=== PATIENT | female | born 2000 | race Two or more races ===

== ENCOUNTER 2024-07-10 00:21 | Emergency (ER) | payer MEDICAID ==
[~2024-07-10] VITALS: Ht 165.1 cm; Wt 72.8 kg
[2024-07-10 01:03] VITALS: BP 136/82; PULSE 104; RESP 16; TEMP 99.1; O2SAT 97
[2024-07-10] MEDS ORDERED: AUG875T PO (02:39)
[2024-07-10] MEDS ORDERED: METH4PAK PO (02:39)
--- NOTE | 2024-07-10 02:39 | ED.PDOC ---
Eye-HPI HPI Comments PT CAME TO THE ER WITH CC OF SORE THROAT AND YOUSIF X2 DAY, TONSILS APPEAR SWOLLEN AND RED. PT IS A&OX4 RR EVEN AND REGULAR NO DISTRESS NOTED AT THIS TIME. PT DENIES N/V/D CP SOB Chief Complaint: Sore Throat Time Seen by MD: 00:32 Reviewed Notes: Nurses Notes, Medications, Allergies Home Meds Active Scripts Methylprednisolone (Medrol Dosepak) 4 Mg Ian, 4 MG PO UD for 6 Days, #21 TAB UAD Prov:MARTHA ZELAYA [employer]ICIAN 07/10/24 Amoxicillin & Pot Clavulanate (AUGMENTIN TABLET) 875 Mg Tb, 875 MG PO BID for 10 Days, #20 TAB Prov:MARTHA ZELAYA [employer]IAN 07/10/24 Information Source: Patient Mode of Arrival: Ambulatory Past Medical History PAST MEDICAL HISTORY: Denies Surgical History: Denies all surgeries [employer] F[employer]ER History: No Pertinent [employer]ER History Family History Family History: Unknown Social History Smoker: Non-Smoker Alcohol: Denies ETOH Use Drugs: Denies Drug Use Constitutional: reports: fever; denies: chills, diaphoresis, fatigue, malaise, sweats, weakness, others EENTM: reports: throat pain, throat swelling; denies: blurred vision, double vision, ear bleeding, ear discharge, ear drainage, ear pain, ear ringing, eye pain, eye redness, hearing loss, mouth pain, mouth swelling, nasal discharge, nose bleeding, nose congestion, nose pain, photophobia, tearing, voice changes, others Respiratory: denies: cough, hemoptysis, orthopnea, SOB at rest, shortness of breath, SOB with excertion, stridor, wheezing, others Cardiovascular: denies: chest pain, dizzy spells, diaphoresis, Dyspnea on exertion, edema, irregular heart beat, left arm pain, lightheadedness, palpitations, PND, syncope, others Gastrointestinal: denies: abdomen distended, abdominal pain, blood streaked bowels, constipated, diarrhea, dysphagia, difficulty swallowing, hematemesis, melena, nausea, poor appetite, poor fluid intake, rectal bleeding, rectal pain, vomiting, others Genitourinary: denies: abnormal vagina bleeding, burning, dyspareunia, dysuria, flank pain, frequency, hematuria, incontinence, pain, , vagina discharge, urgency, others Neurological: reports: headache; denies: dizziness, fainting, left sided numbness, left sided weakness, numbness, paresthesia, pre-existing deficit, right sided numbness, right sided weakness, seizure, speech problems, tingling, tremors, weakness, others Musculoskeletal: denies: back pain, gout, joint pain, joint swelling, muscle pain, muscle stiffness, neck pain, others Integumetry: denies: bruises, change in color, change in hair/nails, dryness, laceration, lesions, lumps, rash, wounds, others Allergic/Immunocompromised: denies: Difficulty Healing, Frequent Infections, Hives, Itching, others Hematologic/Lymphatic: denies: anemia, blood clots, easy bleeding, easy bruising, swollen glands, others Endocrine: denies: excessive hunger, excessive sweating, excessive thirst, excessive urination, flushing, intolerance to cold, intolerance to heat, unexplained weight gain, unexplained weight loss, others Psychiatric: denies: anxiety, bipolar disorder, depression, hopeless, panic disorder, schizophrenia, sleepless, suicidal, others Physical Exam General Appearance: No Apparent Distress, Normal HEENT: Pharyngeal Erythema, TMs Normal, Tonsillar Exudate (TONSILS GRADE 4) Neck: Full Range of Motion, Non-Tender, Normal, Normal Inspection Respiratory: Lungs Clear, No Accessory Muscle Use, No Respiratory Distress, Normal Breath Sounds Cardiovascular: No Edema, No JVD, No Murmur, No Gallop, Normal Peripheral Pulses, Regular Rate/Rhythm Breast Exam: Deferred Gastrointestinal: No Organomegaly, Non Tender, No Pulsatile Mass, Normal Bowel Sounds, Soft Genitalia: Deferred Pelvic: Deferred Rectal: Deferred Extremities: Normal capillary refill, Normal inspection, Normal range of motion, Non-tender, No pedal edema Musculoskeletal : Apperance: Normal Neurologic: Alert, 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 Was a procedure done?: No EENT DIFF Eye: N/A Ear: N/A Nose: N/A Sore Throat: Mononeucleosis, Sanchez's Angina, Peritonsillar Abscess, Peritonsillar Cellulitis, Pharyngitis, Streptococcal, Viral Pharyngitis, URI X-Ray, Labs, Meds, VS Vital Signs Date Time Temp Pulse Resp B/P (MAP) Pulse Ox O2 Delivery O2 Flow Rate FiO2 07/10/24 01:03 Room Air 07/10/24 01:03 99.1 104 16 136/82 (100) 97 99.1 07/10/24 01:03 99.1 104 16 136/82 (100) 97 99.1 Current Medications Medications (Trade) Dose Ordered Sig/Wang Route Start Time Stop Time Status Last Admin Dexamethasone Sodium Phosphate (Decadron Injection) 10 mg ONCE ONCE IM 07/10/24 01:45 07/10/24 01:46 DC 07/10/24 02:58 Ceftriaxone Sodium (Rocephin) 1,000 mg ONCE ONCE IM 07/10/24 01:45 07/10/24 01:46 DC 07/10/24 02:58 Acetaminophen (Tylenol Tablet Or Capsule) 1,000 mg ONCE ONCE PO 07/10/24 03:00 07/10/24 03:01 DC 07/10/24 03:02 X-Ray, Labs, Meds, VS Comment PATIENT GIVEN ROCEPHIN 1 G IM AND DECADRON 10 MG IM AND TYLENOL 1 G. NOTES IMPROVEMENT SYMPTOMS REQUESTING DISCHARGE AT THIS TIME. SCRIPT TRIAL OF AUGMENTIN AND MEDROL DOSEPAK PATIENT'S PHARMACY ON FILE. ADVISED TO TAKE MEDICATIONS PRESCRIBED SIDE EFFECTS DISCUSSED. [id number] TYLENOL OR MOTRIN NEEDED FOR FEVER AND PAIN PER LABELED DOSING INSTRUCTIONS. ADVISED TO FOLLOW UP WITH HER PCP IN 2-3 DAYS NEEDED DISCUSSED ER RETURN PRECAUTIONS PATIENT INDICATES UNDERSTANDING AND AGREES WITH DISCHARGE PLAN OF CARE. Time of 1ST Reevaluation: 01:30 Reevaluation 1ST: Unchanged Time of 2ND Reevaluation: 03:07 Reevaluation 2ND: Improved Patient Education/Counseling: Diagnosis, Treatment, Prognosis, Need For Follow Up Family Education/Counseling: No Family Present Departure 1 Departure Time of Disposition: 02:38 Impression: Primary Impression: Acute tonsillitis Qualified Codes: J03.90 - Acute tonsillitis, unspecified Disposition: HOME / SELF CARE / HOMELESS Condition: Stable e-Prescriptions Methylprednisolone (Medrol Dosepak) 4 Mg Ian 4 MG PO UD for 6 Days, #21 TAB UAD Prov: MARTHA ZELAYA [employer] 07/10/24 Amoxicillin & Pot Clavulanate (AUGMENTIN TABLET) 875 Mg Tb 875 MG PO BID for 10 Days, #20 TAB Prov: MARTHA ZELAYA 07/10/24 Discharged With: Self Critical Care Note Critical Care Time?: No Stability Stability form required: MARTHA Dumont July 10, 2024 02:39
[2024-07-10] MEDS: DexAMETHasone SOD PHOS 10MG/1ML VIAL INJ IM ONE (02:58)
[2024-07-10] MEDS: cefTRIAXone SOD 1,000 MG VL IM ONE (02:58)
[2024-07-10] MEDS: ACETAMINOPHEN 500 MG TAB or CAP PO ONE (03:02)
== END 2024-07-10 03:23 | disposition home or self-care (01) ==
LOC: ER 00:21
DX: J03.90 Acute tonsillitis, unspecified (principal)
CPT/HCPCS: 96372; 99284; J0696; J1100

== ENCOUNTER 2024-09-23 14:42 | Emergency (ER) | payer MEDICAID ==
[~2024-09-23] VITALS: Ht 165.1 cm; Wt 65.0 kg
--- NOTE | 2024-09-23 15:12 | ED.PDOC ---
General HPI Comments THIS IS A 23 YEAR OLD FEMALE PRESENTING TO THE ED WITH CHIEF COMPLAINT OF PELVIC ACHING. PATIENT REPORTS THAT SHE HAS BEEN EXPERIENCING PELVIC PAIN WITH ASSOCIATED FATIGUE, VAGINAL DISCHARGE, VAGINAL ITCHINESS, AND CLOUDY URINE FOR THE PAST 3 DAYS. PATIENT RELAYS THAT HER LMP WAS ON 08/18/24. PATIENT DENIES ANY DYSURIA, HEMATURIA, FLANK PAIN, ABDOMINAL PAIN, FEVER, OR CHILLS. NO FURTHER QUESTIONS OR CONCERNS AT THIS TIME. PT IS ALERT, ORIENTATION X4 WITH NORMAL GAIT. Chief Complaint: Pelvic Pain Time Seen by MD: 15:09 Reviewed notes: Nurses Notes, Medications, Allergies Allergies: Coded Allergies: NO KNOWN ALLERGIES (Unverified , 09/23/24) Information Source: Patient Mode of Arrival: Ambulatory Severity: Moderate Timing: Days Duration: Since onset Prehospital treatment: None Onset: Spontaneous Symptoms: Other History of: None Location: None associated signs and symptoms: Other Past Medical History PAST MEDICAL HISTORY: Denies Surgical History: Denies all surgeries CLOTH SHRINKER History: No Pertinent CLOTH SHRINKER History Family History Family History: Reviewed,noncontributory to illness, Unknown Social History Smoker: Non-Smoker Alcohol: Denies ETOH Use Drugs: Denies Drug Use Lives In: Home Constitutional: reports: fatigue; denies: chills, diaphoresis, fever, malaise, sweats, weakness, others EENTM: denies: blurred vision, double vision, ear bleeding, ear discharge, ear drainage, ear pain, ear ringing, eye pain, eye redness, hearing loss, mouth pain, mouth swelling, nasal discharge, nose bleeding, nose congestion, nose pain, photophobia, tearing, throat pain, throat swelling, voice changes, others Respiratory: denies: cough, hemoptysis, orthopnea, SOB at rest, shortness of breath, SOB with excertion, stridor, wheezing, others Cardiovascular: denies: chest pain, dizzy spells, diaphoresis, Dyspnea on exertion, edema, irregular heart beat, left arm pain, lightheadedness, palpitations, PND, syncope, others Gastrointestinal: denies: abdomen distended, abdominal pain, blood streaked bowels, constipated, diarrhea, dysphagia, difficulty swallowing, hematemesis, melena, nausea, poor appetite, poor fluid intake, rectal bleeding, rectal pain, vomiting, others Genitourinary: reports: burning, vagina discharge, others (VAGINAL ITCHINESS, CLOUDY URINE); denies: abnormal vagina bleeding, dyspareunia, dysuria, flank pain, frequency, hematuria, incontinence, pain, , urgency Neurological: denies: dizziness, fainting, headache, left sided numbness, left sided weakness, numbness, paresthesia, pre-existing deficit, right sided numbness, right sided weakness, seizure, speech problems, tingling, tremors, weakness, others Musculoskeletal: denies: back pain, gout, joint pain, joint swelling, muscle pain, muscle stiffness, neck pain, others Integumetry: denies: bruises, change in color, change in hair/nails, dryness, laceration, lesions, lumps, rash, wounds, others Allergic/Immunocompromised: denies: Difficulty Healing, Frequent Infections, Hives, Itching, others Hematologic/Lymphatic: denies: anemia, blood clots, easy bleeding, easy bruising, swollen glands, others Endocrine: denies: excessive hunger, excessive sweating, excessive thirst, excessive urination, flushing, intolerance to cold, intolerance to heat, unexplained weight gain, unexplained weight loss, others Psychiatric: denies: anxiety, bipolar disorder, depression, hopeless, panic disorder, schizophrenia, sleepless, suicidal, others All Other Systems: Reviewed and Negative Physical Exam General Appearance: No Apparent Distress, Normal HEENT: Normal ENT Inspection, PERRL/EOMI, Pharynx Normal, TMs Normal Neck: Full Range of Motion, Non-Tender, Normal, Normal Inspection Respiratory: Chest Non-Tender, Lungs Clear, No Accessory Muscle Use, No Respiratory Distress, Normal Breath Sounds Cardiovascular: No Edema, No JVD, No Murmur, No Gallop, Normal Peripheral Pulses, Regular Rate/Rhythm Breast Exam: Deferred Gastrointestinal: No Organomegaly, Non Tender, No Pulsatile Mass, Normal Bowel Sounds, Soft Genitalia: Deferred Pelvic: Discharge (MILD WHITE AND YELLOW VAGINAL DISCHARGE, NO VAGINAL BLEEDING AND BLOOD CLOTS. 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 Was a procedure done?: No Differential Diagnosis Kidney stone (Female): N/A Kidney stone (Male): N/A Penile/Scrotal: N/A Urinary Problem (Male): N/A Urinary Problem (Female): Intrauterine , UTI, Vaginitis, Other ( ) X-Ray, Labs, Meds, VS Vital Signs Date Time Temp Pulse Resp B/P (MAP) Pulse Ox O2 Delivery O2 Flow Rate FiO2 09/23/24 14:44 98.2 72 18 121/70 97 98.2 Lab Test 09/23/24 15:18 09/23/24 15:10 09/23/24 15:04 Range/Units Urine Color Light-yellow Yellow Urine Clarity Clear Clear Urine pH 6.0 5.0-9.0 Urine Specific [place] 1.022 1.001-1.035 Urine Protein Negative Negative Urine Ketones Negative Negative Urine Blood Negative Negative /uL Urine Nitrite Negative Negative Urine Bilirubin Negative Negative Urine Urobilinogen Normal Negative mg/dL Urine Leukocyte Esterase 3+ Negative /uL Urine RBC 2 0 - 4 /hpf Urine Microscopic WBC 9 H 0-5 /HPF Urine Squamous Epithelial Cells Few <5 /hpf Urine Bacteria None seen None Seen /hpf Urine Mucus Moderate None Seen Urine Glucose Normal Normal mg/dL Urine Test Positive Negative Vaginal WBC (Wet Prep) Many Vaginal RBC (Wet Prep) Few Vaginal Epithelial Cells (Wet Prep) Many Vaginal Bacteria (Wet Prep) Moderate Vaginal Trichomonas (Wet Prep) Not present Vaginal Yeast (Wet Prep) None seen Vaginal Clue Cells (Wet Prep) None seen White Blood Count 7.2 4.4-10.8 10^3/uL Red Blood Count 5.12 4.0-5.20 10^6/uL Hemoglobin 13.2 12.2-16.2 g/dL Hematocrit 39.6 36.0-46.0 % Mean Corpuscular Volume 77.3 L 80.0-100.0 fL Mean Corpuscular Hemoglobin 25.9 L 28.0-32.0 pg Mean Corpuscular Hemoglobin Concent 33.5 32.0-36.0 g/dL Red Cell Distribution Width 14.0 11.8-14.3 % Platelet Count 293 140-450 10^3/uL Mean Platelet Volume 8.0 6.9-10.8 fL Neutrophils (%) (Auto) 58.6 37.0-80.0 % Lymphocytes (%) (Auto) 32.4 10.0-50.0 % Monocytes (%) (Auto) 7.1 0.0-12.0 % Eosinophils (%) (Auto) 1.3 0.0-7.0 % Basophils (%) (Auto) 0.6 0.0-2.0 % Neutrophils # (Auto) 4.2 1.6-8.6 10 ^3/uL Lymphocytes # (Auto) 2.3 0.4-5.4 10 ^3/uL Monocytes # (Auto) 0.5 0-1.3 10 ^3/uL Eosinophils # (Auto) 0.1 0-0.8 10 ^3/uL Basophils # (Auto) 0 0-0.2 10 ^3/uL Nucleated Red Blood Cells 0.0 % Sodium Level 139 136-145 mmol/L Potassium Level 3.6 3.5-5.1 mmol/L Chloride Level 105 98-107 mmol/L Carbon Dioxide Level 27 20-31 mmol/L Anion Gap 7 5-15 Blood Urea Nitrogen 6 L 9-23 mg/dL Creatinine 0.76 0.550-1.02 mg/dL Glomerular Filtration Rate Calc 114 >90 mL/min BUN/Creatinine Ratio 7.9 L 10.0-20.0 Serum Glucose 111 H 74-106 mg/dL Calcium Level 9.0 8.7-10.4 mg/dL Beta HCG, Quantitative 3731.5 H 1.5-4.2 mIU/mL PATIENT: KESHAV ANTUNEZCT: [id number]: [id number] : 2000 LOC: ER ROOM / BED: / AGE / SEX: 23 / F ADM STATUS: REG ER SERVICE [id number] ORDERING PHYSICIAN: KACIE SABA PROCEDURE(s): OB4US - OB ULTRASOUND COMP LESS 14WKS REASON: PELVIC PAIN ORDER NUMBER(s): [id number], ACCESSION NUMBER(s): [id number] OBSTETRIC ULTRASOUND PRIOR TO 14 WEEKS CLINICAL INDICATION: PELVIC PAIN TECHNIQUE: Multiple grayscale ultrasound images were obtained of the pelvis via transabdominal and transvaginal approach for obstetric evaluation. Limited color Doppler and spectral Doppler acquisitions were also obtained. COMPARISON: None FINDINGS: Uterus: 7.3 x 5.7 x 4.2 cm. There is a single intrauterine gestational sac is visualized measuring 6 mm. A normal yolk sac is present. A pole is not seen. Right adnexa: right ovary 2.8 x 1.5 x 2.2 cm. Normal arterial blood flow in the ovary. No right adnexal mass seen. Left adnexa: left ovary 3.6 x 2.2 x 2.8 cm. Normal arterial blood flow in the ovary. No left adnexal mass seen. Corpus luteum in the left ovary measures 2.1 cm. Other: None IMPRESSION: Small intrauterine gestational sac and probable yolk sac. No pole is seen at this time. This is likely due to early gestation at this time. Follow-up with trending beta HCGs and follow-up ultrasound in 7-14 days. ATED BY: KRISTY NAVARRETE MD DICTATED DATE/TIME: 09/23/24 163 SIGNED BY: KRISTY NAVARRETE MD SIGNED DATE/TIME: 09/23/24 163 CC: X-Ray, Labs, Meds, VS Comment EXTERNAL MEDICAL RECORDS REVIEWED: [NONE] INDEPENDENT HISTORIANS: [NONE] SOCIAL DETERMINANTS OF HEALTH: [NONE] LABS ORDERED: UA, PREG URINE, BMP, CBC, WET MOUNT, BHCG QUANT REVIEWED AND INTERPRETED RESULTS: NONE IMAGING ORDERED: NONE TREATMENTS ORDERED: NO PROCEDURES PERFORMED: NONE CRITICAL CARE TIME: NONE I HAVE DISCUSSED THE PATIENT WITH THE ATTENDING PHYSICIAN DR. ESPINOZA AND HE AGREES WITH THE PATIENT'S PLAN OF CARE AND DISPOSITION. BASED ON HISTORY OF PRESENT ILLNESS, AND PHYSICAL EXAM, PATIENT WILL BE DISCHARGED HOME. DISCUSSED PLAN FOR DISCHARGE HOME WITH RX [MACROBID 100MG AND CLINDAMYCIN VAGINAL CREAM*]. MEDICATION WARNINGS GIVEN. SHARED DECISION MAKING: DISCUSSED WITH PATIENT THAT THEIR WORKUP WAS NORMAL. PATIENT INSTRUCTED TO FOLLOW UP WITH PRIMARY CARE PROVIDER IN 1-2 DAYS FOR RE- EVALUATION OF SYMPTOMS. PATIENT VERBALIZES UNDERSTANDING TO RETURN TO ED FOR NEW OR WORSENING SYMPTOMS OR IF FOLLOW UP WITH PCP CANNOT BE OBTAINED. PATIENT FEELS COMFORTABLE GOING HOME AT THIS TIME. ALL QUESTIONS ADDRESSED AT TIME OF DISCHARGE. Time of Reevaluation: 16:47 Reevaluation 1ST: Improved Patient Education/Counseling: Diagnosis, Treatment, Need For Follow Up Family Education/Counseling: Diagnosis, Treatment, No Family Present Medical Screening: No EMC Exist At This Time SEPSIS Sepsis Screen Date sepsis recognized/suspect: Sep 23, 2024 Time Sepsis recognized/suspect: 1446 Recent Procedure: No On Antibiotic Therapy: No Respiratory Rate >20: No Heart Rate >90: No Temp<36 C (96.8 F) or >38.3 C: No SBP <90 or MAP <65 mmHG: No New Acute Mental Status Change: No Is the patient on CPAP, BIPAP,: No Physician Orders Ob Ultrasound Comp Less 14wks (09/23/24 15:43) Vital Signs Date Time Temp Pulse Resp B/P (MAP) Pulse Ox O2 Delivery O2 Flow Rate FiO2 09/23/24 14:44 98.2 72 18 121/70 97 98.2 Laboratory Tests Test 09/23/24 15:04 White Blood Count 7.2 10^3/uL (4.4-10.8) Departure 1 Departure Time of Disposition: 16:48 Impression: Primary Impression: UTI (urinary tract infection) Qualified Codes: N30.00 - Acute cystitis without hematuria Additional Impressions: Early stage of Bacterial vaginitis Disposition: 01 HOME / SELF CARE / HOMELESS Condition: Stable Additional Instructions: F/U PCP IN 2 DAYS RECHECK. IF CONDITION BECOME WORSE, RETURN TO ED [place]. e-Prescriptions Clindamycin Phosphate Vaginal (Cleocin) 2 % Cre 1 APPLIC VG QPM, #40 GRAMS Prov: KACIE SABA 09/23/24 Nitrofurantoin Monohydrate Mac (Macrobid) 100 Mg Cap 100 MG PO BID, #20 CAP Prov: KACIE SABA 09/23/24 Discharged With: Self Critical Care Note Critical Care Time?: No Stability Stability form required: No Heart Score Heart Score: Heart Score Response (Comments) Value History N/A 0 EKG N/A 0 Age N/A 0 Risk Factors N/A 0 Troponin N/A 0 Total 0 I personally scribed for KACIE SABA ([email or web address]) on 09/23/24 at 15:11. Electronically submitted by Earl Allen ([email or web address]). I personally scribed for KACIE SABA ([email or web address]) on 09/23/24 at 15:33. Electronically submitted by Earl Allen ([email or web address]). I personally scribed for KACIE SABA ([email or web address]) on 09/23/24 at 16:43. Electronically submitted by Earl Allen ([email or web address]). KACIE SABA Sep 23, 2024 15:11
[2024-09-23 15:27] LABS: Hematocrit 39.6 % (36.0-46.0); Hemoglobin 13.2 g/dL (12.2-16.2); Mean Corpuscular Hemoglobin 25.9 pg (28.0-32.0); Mean Corpuscular Volume 77.3 fL (80.0-100.0); Nucleated Red Blood Cells % 0.0 %
[2024-09-23 15:29] LABS: Urine Protein, UAD Negative (Negative)
[2024-09-23 15:34] LABS: Chloride 105 mmol/L (98-107); Potassium 3.6 mmol/L (3.5-5.1); Sodium 139 mmol/L (136-145)
[2024-09-23 15:35] LABS: Anion Gap 7 (5-15); Carbon Dioxide 27 mmol/L (20-31)
[2024-09-23 15:36] LABS: Calcium 9.0 mg/dL (8.7-10.4)
[2024-09-23 15:41] LABS: BUN/Creatinine Ratio 7.9 (10.0-20.0)
[2024-09-23 15:43] LABS: Blood Urea Nitrogen 6 mg/dL (9-23); Glucose 111 mg/dL (74-106)
[2024-09-23 15:47] LABS: Vaginal Trichomonas Not Present
[2024-09-23 15:49] LABS: Vaginal Bacteria Moderate; Vaginal Clue Cells None Seen; Vaginal Epithelial Cells Many
--- NOTE | 2024-09-23 16:37 | DVH ---
OBSTETRIC ULTRASOUND PRIOR TO 14 WEEKS CLINICAL INDICATION: PELVIC PAIN TECHNIQUE: Multiple grayscale ultrasound images were obtained of the pelvis via transabdominal and tr ansvaginal approach for obstetric evaluation. Limited color Doppler and spectral Doppler acquisitions were also obtained. COMPARISON: None FINDINGS: Uterus: 7.3 x 5.7 x 4.2 cm. There is a single intrauterine gestational sac is visualized measuring 6 mm. A normal yolk sac is present. A pole is not seen. Right adnexa: right ovary 2.8 x 1.5 x 2.2 cm. Normal arterial blood flow in the ovary. No right adne xal mass seen. Left adnexa: left ovary 3.6 x 2.2 x 2.8 cm. Normal arterial blood flow in the ovary. No left adnexal mass seen. Corpus luteum in the left ovary measures 2.1 cm. Other: None IMPRESSION: Small intrauterine gestational sac and probable yolk sac. No pole is seen at this time. This i s likely due to early gestation at this time. Follow-up with trending beta HCGs and follow-up ultras ound in 7-14 days.
[2024-09-23] MEDS ORDERED: CLIN2CRE VG (16:51)
[2024-09-23] MEDS ORDERED: NITR-87 PO (16:51)
[2024-09-23 16:58] VITALS: BP 133/84; PULSE 104; RESP 16; TEMP 98.1; O2SAT 99
== END 2024-09-23 17:00 | disposition home or self-care (01) ==
LOC: ER 14:42
DX: O23.599 Infection of other part of genital tract in pregnancy, unspecified trimester (principal); O23.41 Unspecified infection of urinary tract in pregnancy, first trimester; N39.0 Urinary tract infection, site not specified; Z3A.01 Less than 8 weeks gestation of pregnancy
CPT/HCPCS: 36415; 76801; 76817; 80048; 81001; 81025; 84702; 85025; 87210

== ENCOUNTER 2024-10-01 08:30 | Emergency (ER) | payer MEDICAID ==
[~2024-10-01] VITALS: Ht 165.1 cm; Wt 65.0 kg
[~2024-10-01 08:30] MED LIST: CLIN2CRE VG; NITR-87 PO
--- NOTE | 2024-10-01 08:45 | ED.PDOC ---
HPI (NEURO) HPI Comments A 23 YEAR OLD FEMALE PRESENTS TO THE ED WITH COMPLAINT OF MIGRAINE HEADACHE. PATIENT STATES SHE HAS BEEN EXPERIENCING A HEADACHE WITH NAUSEA THAT STARTED YESTERDAY NIGHT. PATIENT NOTES SHE HAS A HISTORY OF MIGRAINE HEADACHES AND STATES HER CURRENT HEADACHE IS THE SAME TYPE OF PAIN PREVIOUS MIGRAINE HEADACHES SHE HAS HAD IN THE PAST. PATIENT REPORTS SHE IS CURRENTLY AT THIS TIME. PATIENT DENIES DYSURIA, HEMATURIA, VISION CHANGES, SLURRED SPEECH, ONE-SIDED WEAKNESS, FACIAL DROOP, FEVER, CHILLS, SHORTNESS OF BREATH, CHEST PAIN, ABDOMINAL PAIN, VOMITING, OR OTHER COMPLAINTS. NO OTHER SYMPTOMS OR MODIFYING FACTORS AT THIS TIME. PATIENT IS ALERT, ORIENTED X 4, AND HAS STEADY GAIT. Chief Complaint: Headache Time Seen by MD: 08:33 Reviewed Notes: Nurses Notes, Medications, Allergies Information Source: Patient Mode of Arrival: Ambulatory Severity: Mild, Moderate Headache Severity: Mild, Moderate Timing: Days Duration: Since onset, Days Prehospital treatment: None Headache Quality: Aching, Tight Headache Location: Frontal Onset: At rest Circumstances: Spontaneous Symptoms: Other (HEADACHE, NAUSEA) Modifying factors: Nothing Associated Signs and Symptoms: Headache, Nausea Past Medical History Past Medical History (Other): MIGRAINE HEADACHES Surgical History: Denies all surgeries RCP History: No Pertinent RCP History Family History Family History: Reviewed,noncontributory to illness Social History Smoker: Non-Smoker Alcohol: Denies ETOH Use Drugs: Denies Drug Use Lives In: Home Constitutional: denies: chills, diaphoresis, fatigue, fever, malaise, sweats, weakness, others EENTM: denies: blurred vision, double vision, ear bleeding, ear discharge, ear drainage, ear pain, ear ringing, eye pain, eye redness, hearing loss, mouth pain, mouth swelling, nasal discharge, nose bleeding, nose congestion, nose pain, photophobia, tearing, throat pain, throat swelling, voice changes, others Respiratory: denies: cough, hemoptysis, orthopnea, SOB at rest, shortness of breath, SOB with excertion, stridor, wheezing, others Cardiovascular: denies: chest pain, dizzy spells, diaphoresis, Dyspnea on exertion, edema, irregular heart beat, left arm pain, lightheadedness, palpitations, PND, syncope, others Gastrointestinal: reports: nausea; denies: abdomen distended, abdominal pain, blood streaked bowels, constipated, diarrhea, dysphagia, difficulty swallowing, hematemesis, melena, poor appetite, poor fluid intake, rectal bleeding, rectal pain, vomiting, others Genitourinary: denies: abnormal vagina bleeding, burning, dyspareunia, dysuria, flank pain, frequency, hematuria, incontinence, pain, , vagina discharge, urgency, others Neurological: reports: headache; denies: dizziness, fainting, left sided numbness, left sided weakness, numbness, paresthesia, pre-existing deficit, right sided numbness, right sided weakness, seizure, speech problems, tingling, tremors, weakness, others Musculoskeletal: denies: back pain, gout, joint pain, joint swelling, muscle pain, muscle stiffness, neck pain, others Integumetry: denies: bruises, change in color, change in hair/nails, dryness, laceration, lesions, lumps, rash, wounds, others Allergic/Immunocompromised: denies: Difficulty Healing, Frequent Infections, Hives, Itching, others Hematologic/Lymphatic: denies: anemia, blood clots, easy bleeding, easy bruising, swollen glands, others Endocrine: denies: excessive hunger, excessive sweating, excessive thirst, excessive urination, flushing, intolerance to cold, intolerance to heat, unexplained weight gain, unexplained weight loss, others Psychiatric: denies: anxiety, bipolar disorder, depression, hopeless, panic disorder, schizophrenia, sleepless, suicidal, others All Other Systems: Reviewed and Negative Physical Exam General Appearance: No Apparent Distress, Normal HEENT: Normal ENT Inspection, PERRL/EOMI, Pharynx Normal, TMs Normal Neck: Full Range of Motion, Non-Tender, Normal, Normal Inspection Respiratory: Chest Non-Tender, Lungs Clear, No Accessory Muscle Use, No Respiratory Distress, Normal Breath Sounds Cardiovascular: No Edema, No JVD, No Murmur, No Gallop, Normal Peripheral Pulses, Regular Rate/Rhythm Breast Exam: Deferred Gastrointestinal: No Organomegaly, Non Tender, No Pulsatile Mass, Normal Bowel Sounds, Soft Genitalia: Deferred Pelvic: Deferred Rectal: Deferred Extremities: No calf tenderness, Normal capillary refill, Normal inspection, Normal range of motion, Non-tender, No pedal edema Musculoskeletal : Apperance: Normal Neurologic: Alert, hospitalist II-XII nml as Tested, Headache, No Motor Deficits, Normal Affect, Normal Mood, No Sensory Deficits Cerebellar Function: Normal Reflexes: Normal Skin: Dry, Normal Color, Warm Peripheral Pulses: 2+ carotid (R), 2+ carotid (L) Lymphatic: No Adenopathy Was a procedure done? Was a procedure done?: No Differential Diagnosis (SZ) General Weakness: N/A Headache: Cluster, Migraine, Sinusitis X-Ray, Labs, Meds, VS Vital Signs Date Time Temp Pulse Resp B/P (MAP) Pulse Ox O2 Delivery O2 Flow Rate FiO2 10/01/24 08:31 98.2 99 20 139/76 100 98.2 X-Ray, Labs, Meds, VS Comment EXTERNAL MEDICAL RECORDS REVIEWED: [NONE] INDEPENDENT HISTORIANS: [NONE] SOCIAL DETERMINANTS OF HEALTH: [NONE] LABS ORDERED: NONE REVIEWED AND INTERPRETED RESULTS: NONE IMAGING ORDERED: NONE PATIENT DECLINED CT SCAN AT THIS TIME SHE STATED SHE DOES NOT THINK SHE NEEDS ONE AT THIS TIME AND THINKS SHE IS JUST HAVING A MIGRAINE HEADACHE. TREATMENTS ORDERED: TYLENOL 1G PO, ZOFRAN 4MG PO PROCEDURES PERFORMED: NONE CRITICAL CARE TIME: NONE I HAVE DISCUSSED THE PATIENT WITH THE ATTENDING PHYSICIAN DR. KRYSTEN GARCIA AND SHE AGREES WITH THE PATIENT'S PLAN OF CARE AND DISPOSITION. BASED ON HISTORY OF PRESENT ILLNESS, AND PHYSICAL EXAM, PATIENT WILL BE DISCHARGED HOME. DISCUSSED PLAN FOR DISCHARGE HOME WITH RX [TYLENOL AND ZOFRAN 4MG]. MEDICATION WARNINGS GIVEN. SHARED DECISION MAKING: PATIENT INSTRUCTED TO FOLLOW UP WITH PRIMARY CARE PROVIDER IN 1-2 DAYS FOR RE-EVALUATION OF SYMPTOMS. PATIENT VERBALIZES UNDERSTANDING TO RETURN TO ED FOR NEW OR WORSENING SYMPTOMS OR IF FOLLOW UP WITH PCP CANNOT BE OBTAINED. PATIENT FEELS COMFORTABLE GOING HOME AT THIS TIME. ALL QUESTIONS ADDRESSED AT TIME OF DISCHARGE. Time of 1ST Reevaluation: :20 Reevaluation 1ST: Improved Patient Education/Counseling: Diagnosis, Treatment, Need For Follow Up Family Education/Counseling: Diagnosis, Treatment, Need For Follow Up Medical Screening: No EMC Exist At This Time Departure 1 Departure Time of Disposition: :20 Impression: Primary Impression: Migraine headache without aura Qualified Codes: G43.009 - Migraine without aura, not intractable, without status migrainosus Disposition: HOME / SELF CARE / HOMELESS Condition: Stable Additional Instructions: FOLLOW-UP WITH PCP IN 1 TO 2 DAYS. TAKE MEDICATIONS PRESCRIBED. RETURN TO ED FOR ANY NEW OR WORSENING SYMPTOMS. e-Prescriptions Ondansetron Odt 4MG Tab (ZOFRAN PO) 4 Mg Tb 4 MG PO BID, #20 TAB ODT TAB-DISSOLVE IN MOUTH, THEN SWALLOW Prov: KACIE SABA 10/01/24 Acetaminophen (Tylenol Extra Strength Fo) 500 Mg Tab 1000 MG PO BID, #30 TAB Prov: KACIE SABA 10/01/24 Discharged With: Self Critical Care Note Critical Care Time?: No Stability Stability form required: No I personally scribed for KACIE SABA ([email or web address]) on 10/01/24 at 08:45. Electronically submitted by Juve Freedman ([email or web address]). KACIE SABA Oct 01, 2024 08:45
[2024-10-01] MEDS ORDERED: ACET-1304 PO (09:01)
[2024-10-01] MEDS ORDERED: ZOFR4T PO (09:01)
[2024-10-01] MEDS: ACETAMINOPHEN 325 MG TAB PO ONE (09:08)
[2024-10-01] MEDS: ONDANSETRON ODT 4 MG TAB PO ONE (09:14)
[2024-10-01] MEDS: ACETAMINOPHEN 500 MG TAB or CAP PO ONE (09:14)
[2024-10-01 09:34] VITALS: BP 105/70; PULSE 85; RESP 15; TEMP 98.3; O2SAT 100
== END 2024-10-01 09:35 | disposition home or self-care (01) ==
LOC: ER 08:30
DX: G43.009 Migraine without aura, not intractable, without status migrainosus (principal); Z79.899 Other long term (current) drug therapy
CPT/HCPCS: 99283; Q0162